=== PATIENT | male | born 1965 | race Caucasian/White ===

== ENCOUNTER 2022-10-01 09:18 | Outpatient (CLI) | payer BC, SELFPAY ==
--- NOTE | 2022-10-01 08:30 | DI.RAD_ITS ---
Exam(s) XR KNEE RT 4V AP,LAT,JERRELL,PAT EXAM: XR KNEE RT 4V AP,LAT,JERRELL,PAT CLINICAL HISTORY: evalR knee pain. TECHNIQUE: 2D digital imaging was performed of the right knee. Five views obtained. Merchant, AP, la teral and PA tunnel views were obtained. COMPARISON: No exams were available for comparison FINDINGS: BONES: No acute fracture is present. No bony destructive lesion is seen. JOINTS: The knee is normally aligned. There is a small joint effusion. There are round density seen within the joint which may represent loose bodies or synovial osteochondromatosis. There is marked n arrowing of the medial femoral tibial joint. Periarticular spurring is seen in both the lateral femo ral tibial and patellofemoral joints. SOFT TISSUE: Normal. IMPRESSION: Moderate to severe degenerative changes of the right knee. DATA REPOSITORY: RADIATION DOSE DELIVERED:
== END 2022-10-01 09:19 | disposition home or self-care (01) ==
LOC: DIORS 09:19
PROVIDERS: Visit Provider Student in an Organized Health Care Education/Training Program
DX: M25.561 Pain in right knee (principal); M25.461 Effusion, right knee; M17.11 Unilateral primary osteoarthritis, right knee
CPT/HCPCS: 73564

== ENCOUNTER 2023-06-25 10:40 | Outpatient (CLI) | payer BC, SELFPAY ==
--- NOTE | 2023-06-25 09:30 | DI.RAD_ITS ---
Exam(s) XR STANDING ALIGNMENT EXAM: XR STANDING ALIGNMENT CLINICAL HISTORY: OA RIGHT KNEE. TECHNIQUE: 2D digital imaging was performed. COMPARISON: No exams were available for comparison FINDINGS: 3 views There is significant degenerative change in the right knee with advanced narrowing of the medial join t space. There is relative preservation of height of the lateral joint space but there is significan t medial subluxation of the femoral condyles upon the tibial plateau, with approximately 1.5 cm media l subluxation. There also calcified loose bodies noted posteriorly in the intercondylar notch. The opposite-left knee appears relatively unremarkable. Both hips exhibit no degenerative changes but th e left hip joint is approximately 1.3 cm higher than the right hip joint. Sacroiliac joints appear u nremarkable. Left iliac crest is 1.5 cm higher than the right iliac crest. Right ankle unremarkable. There is a E degenerative subarticular cysts noted in the lateral aspect o f the talar dome in left ankle. IMPRESSION: Abnormal findings in the right knee as discussed above. Leg length discrepancy as described above. DATA REPOSITORY: RADIATION DOSE DELIVERED:
--- NOTE | 2023-06-25 09:30 | DI.RAD_ITS ---
Exam(s) XR KNEE RT 1V EXAM: XR KNEE RT 1V CLINICAL HISTORY: OA RIGHT KNEE. TECHNIQUE: 2D digital imaging was performed. COMPARISON: CR XR KNEE RT 4V AP,LAT,JERRELL,PAT from 10/01/2022 CR XR STANDING ALIGNMENT from 06/25/2023 FINDINGS: Single lateral view No fractures. There is a joint effusion noted in the suprapatellar bursa. There are degenerative ch anges evident. There are loose intra-articular bodies seen posteriorly in the posterior aspect of the intercondylar notch. IMPRESSION: Degenerative changes. Joint effusion. Posteriorly located loose intra-articular bodies. DATA REPOSITORY: RADIATION DOSE DELIVERED:
== END 2023-06-25 10:41 | disposition home or self-care (01) ==
LOC: DIORS 10:41
PROVIDERS: Visit Provider Student in an Organized Health Care Education/Training Program
DX: M17.11 Unilateral primary osteoarthritis, right knee (principal); M25.461 Effusion, right knee; M21.761 Unequal limb length (acquired), right tibia
CPT/HCPCS: 73560; 77073

== ENCOUNTER 2023-07-22 02:03 | Outpatient (CLI) | payer BC, SELFPAY ==
[2023-07-22 14:11] LABS: HCT 46.9 % (40.0-50.0); HGB 15.6 g/dL (13.5-17.5); MCH 30.8 pg (27.0-33.0); MCHC 33.3 % (32.0-36.0); MCV 93 fL (80-95); MPV 9.3 fL (8.0-11.0); Platelet Count 279 10^3/uL (130-400); RBC 5.07 10^6/uL (4.36-5.78); RDW 12.2 % (11.8-14.1); RDW-SD 41.6 fL; WBC 6.43 10^3/uL (4.4-10.8)
[2023-07-22 15:10] LABS: Anion Gap 8.5 mmol/L (3-11); BUN 19 mg/dL (7-18); CO2 28.5 mmol/L (21.0-32.0); Calcium 9.3 mg/dL (8.5-10.1); Chloride 101 mmol/L (98-107); Estimated GFR 87.78 (mL/min/1.73m2); Glucose 71 mg/dL (74-106); Potassium 3.9 mmol/L (3.5-5.1); Sodium 138 mmol/L (136-145)
== END 2023-07-22 02:04 | disposition home or self-care (01) ==
PROVIDERS: Visit Provider Student in an Organized Health Care Education/Training Program
DX: M25.561 Pain in right knee (principal); M17.11 Unilateral primary osteoarthritis, right knee; Z01.818 Encounter for other preprocedural examination; Z01.812 Encounter for preprocedural laboratory examination
CPT/HCPCS: 36415; 80048; 85027

== ENCOUNTER 2023-08-05 07:25 | Day surgery (SDC) | payer BC, SELFPAY ==
[2023-08-05] VITALS (9 sets, daily range): BP systolic 126–154; BP diastolic 80–108; PULSE 64–77; RESP 12–20; TEMP 36.4–36.7; O2SAT 92–98; BMI 38.2
--- NOTE | 2023-08-05 07:30 | DSE_ITS ---
Date of service: 08/05/23 Time of Service: 07:33 Discharge Plan Disposition Patient Disposition: Home Condition: Good Discharge Details Reason For Visit: Right knee DJD Attending Provider: Wander Garcia Primary Care Provider: None,None Home Meds and New Rx's Prescriptions: New acetaminophen 500 mg tablet 1,000 mg PO Q8H PRN Qty: 90 0RF Rx Instructions: Take two tablets up to every 8 hours as needed for pain aspirin 81 mg tablet,delayed release (DR/EC) 81 mg PO BID 30 Days Qty: 60 0RF celecoxib [Celebrex] 200 mg capsule 200 mg PO BID PRNQty: 60 0RF Rx Instructions: Take one tablet twice daily for pain and inflammation docusate sodium [Colace] 100 mg capsule 100 mg PO BID Qty: 30 0RF pantoprazole 40 mg tablet,delayed release (DR/EC) 40 mg PO DAILY 14 Days Qty: 14 0RF dexamethasone 4 mg tablet 4 mg PO DAILY Qty: 2 0RF Rx Instructions: Take one tablet once daily for two days oxycodone 5 mg tablet 5 mg PO Q4H PRNQty: 18 0RF Rx Instructions: Take one tablet up to every 4 hours as needed for severe postoperative pain gabapentin 300 mg capsule 300 mg PO QHS Qty: 14 0RF Rx Instructions: Take one tablet at bedtime Continued lisinopril 10 mg tablet 10 mg PO DAILY fluticasone propionate 50 mcg/actuation spray,suspension 2 spray intranasal DAILY Rx Instructions: administer into each nostril Discontinued meloxicam 15 mg tablet 15 mg PO DAILY Qty: 30 3RF Discharge Instructions Additional Instructions: Total Knee Discharge Instructions Activity: The most important activity is to walk and to work on gentle motion (both flexion and extension). You should try to take short walks a few times a day. It is important that when resting you work on keeping the knee straight. Avoid putting a pillow behind the knee as this will encourage flexion. Work on range of motion exercises as provided by Physical Therapy. - Start outpatient physical therapy within 2 weeks. - You should wear the DARRON hose on both legs for 2 weeks. You may remove these at night. You may also use any compression sock in place of the DARRON hose. - Utilize [employer] to review exercises, see videos on exercises and obtain basic information pertaining to your surgery and your recovery. Dressing: Remove the Tal wrap by 2 days after your surgery and put on the DARRON stocking given to you from the hospital. Keep the surgical dressing (underneath the TAL wrap) in place for at least one week. After the first week it may be removed and replaced with light gauze and tape or nothing. The wound and dressing may get wet after 3 days but avoid soaking the dressing or otherwise it will need to be changed. Many people prefer covering the dressing with cling wrap (saran wrap) to minimize it from getting soaked. If it gets wet, just pat dry. If it starts to peel off then it will need to be changed. Medications: - You should take Tylenol and anti-inflammatory Celebrex as your primary pain control medications. If the Celebrex is too expensive or not covered, please call the office for another alternative (Advil/Ibuprofen or Naproxen/Aleve) - You have been prescribed a stronger pain medication Oxycodone for breakthrough pain, take as needed as prescribed. - You have also been prescribed a stomach acid reduction agent Pantoprozole to help reduce stomach acid and reflux. - You have been prescribed Gabapentin to take at night for restlessness and nerve pain. - You will be taking Aspirin 81mg twice a day for DVT prevention unless instructed otherwise. - You have also been prescribed Decadron to take to control post-operative nausea and pain. You will start this tomorrow. - If you have constipation you should take Colace (which has been prescribed) or Miralax (which is available [id number]). It takes most people 3-4 days to have a bowel movement. Follow-up: 2 weeks If you have any acute concerns or questions, please do not hesitate to contact the office at [phone]. You may contact Dr. Garcia with any questions after hours through the hospital at [phone] or on his cell phone at [phone]. Stand Alone Forms: Anesthesia Discharge InstIram, David.Nerve Block Instructions, Shannon Ferguson ([facility]) Referrals: Wander Garcia MD [ [facility] STAFF PHYSICIAN] - 08/19/23 10:45 am Equipment/Supplies: Walker Activity:: Elevate Remove Dressings/Wound Care:: Do Not Remove Shower/Bathe:: 72 hours and Cover Diet:: As Tolerated Discharge Orders Discharge Orders: Discharge Order (Routine); Ordered 08/05/23 Ordered By: Jennifer Peralta Discharge Data Discharge Date/Time-TO BE ENTERED AT DEPARTURE: 08/05/23 13:55 DS: Summary Time Spent with Patient providing and/or coordinating discharge services: Less than 30 minutes Status at Discharge Functional status at discharge: uses cane/walker Overall status at discharge: patient is progressing back to baseline Mental Status: mental status grossly normal Speech and Movement: speech and movement normal Mood: congruent mood Affect: normal affect Exam Psych Mental Status: mental status grossly normal Speech and Movement: speech and movement normal Mood: congruent mood Affect: normal affect DS: Data Vitals/I&O Vitals and I&O: Intake & Output 08/04/23 08/04/23 08/05/23 11:59 23:59 11:59 Weight 273 lb 15.989 oz PFSH All Active Problems HTN (hypertension) (Chronic) Localized osteoarthritis of right knee (Chronic) Surgical History Fracture of phalanx of right index finger ~2016 MCP joint Repair of umbilical hernia Social History Smoking/Tobacco Use Status: Never Smoking risk assessment performed?: Yes Alcohol Intake: current Alcohol Intake frequency: a few times a week Drug use: Never Substance use type: does not use Housing: house Do you feel safe at home: Yes Do you feel safe in your relationship?: Yes Time Spent with Patient Time Spent with Patient: <45 minutes Time was spent: obtaining and/or reviewing separately otained hiistory, indepentently interpreting results, counseling the patient and care coordination
[2023-08-05] MEDS: Lactated Ringers 1,000 ML 80 ML IV (07:51)
[2023-08-05] MEDS: Gabapentin 300 MG CAP PO (07:52)
[2023-08-05] MEDS: Celecoxib 200 MG CAP 400 MG PO (07:52)
[2023-08-05] MEDS: Acetaminophen 500 MG TAB 1000 MG PO (07:52)
--- NOTE | 2023-08-05 08:04 | W.ANESPRE ---
General Info Date of Service Date Performed: 08/05/23 Height: 5 ft 11 in Weight: 124.284 kg Body Mass Index (BMI): 38.2 Surgical Procedure: Operation Date: 08/05/23 09:40 Proposed Procedure Side Surgeon p Knee Total Arthroplasty w/OrthAlign Right Wander Garcia MD Meds Allergies and Home Medications Allergies Allergy/AdvReac Type Severity Reaction Status Date / Time No Known Drug Allergies Allergy Unverified 08/04/23 15:36 Home Medication Medication Instructions Recorded fluticasone propionate 50 2 spray intranasal DAILY 08/25/22 mcg/actuation nasal spray,suspension lisinopril 10 mg tablet 10 mg PO DAILY 07/22/23 acetaminophen 500 mg tablet 1,000 mg (2 x 500 mg) PO Q8H PRN 08/05/23 pain #90 tabs aspirin 81 mg tablet,delayed 81 mg PO BID 30 days #60 tabs 08/05/23 release celecoxib 200 mg capsule (Celebrex) 200 mg PO BID PRN #60 caps 08/05/23 dexamethasone 4 mg tablet 4 mg PO DAILY #2 tabs 08/05/23 docusate sodium 100 mg capsule 100 mg PO BID #30 caps 08/05/23 (Colace) oxycodone 5 mg tablet 5 mg PO Q4H PRN #18 tabs 08/05/23 pantoprazole 40 mg tablet,delayed 40 mg PO DAILY 14 days #14 tabs 08/05/23 release Current Visit Medications: Current Medications Generic Name Dose Route Start Last Admin Trade Name Freq PRN Reason Stop Dose Admin Acetaminophen 1,000 mg 08/05/23 06:00 08/05/23 07:52 Acetaminophen 500 Mg Tab PO 09/04/23 05:59 1,000 mg PREOP ZEE Administration Celecoxib 400 mg 08/05/23 06:00 08/05/23 07:52 Celecoxib 200 Mg Cap PO 09/04/23 05:59 400 mg PREOP ZEE Administration Gabapentin 300 mg 08/05/23 06:00 08/05/23 07:52 Gabapentin 300 Mg Cap PO 09/04/23 05:59 300 mg PREOP ZEE Administration Hydromorphone HCl 0.5 mg 08/05/23 07:28 Hydromorphone 2 Mg/Ml Syr IVP 09/04/23 07:27 Q2H PRN PRN Tranexamic Acid 1,000 mg/ 60 mls @ 360 mls/hr 08/05/23 06:00 Sodium Chloride IVPB 09/04/23 05:59 PREOP ZEE Ringer's Solution 1,000 mls @ 80 mls/hr 08/05/23 06:00 08/05/23 07:51 IV 08/08/23 23:59 80 mls/hr INFUSION ZEE Administration Cefazolin Sodium 3,000 mg/ 100 mls @ 200 mls/hr 08/05/23 06:00 Sodium Chloride IVPB 08/05/23 16:00 PREOP ZEE Cefazolin Sodium/Dextrose 1 gm in 50 mls @ 100 mls/hr 08/05/23 08:00 Ancef Duplex IVPB 08/06/23 00:29 Q8H ZEE IV Miscellaneous Supplies 1 each 08/05/23 06:00 Iv Access IV 08/08/23 23:59 DIRECTED ZEE Ondansetron HCl 4 mg 08/05/23 07:28 Ondansetron 4 Mg/2 Ml Vial IVP 09/04/23 07:27 Q6H PRN PRN Nausea Oxycodone HCl 0 mg 08/05/23 07:28 Oxycodone 5 Mg Tab PO 09/04/23 07:27 Q3H PRN PRN Pain Sodium Chloride 0 ml 08/05/23 06:00 Normal Saline Flush 10 Ml Syr IV 08/08/23 23:59 PRN PRN Sodium Chloride 0 ml 08/05/23 06:00 Normal Saline 10 Ml Vial IJ 08/08/23 23:59 DIRECTED PRN Sterile Water 0 ml 08/05/23 06:00 Water,Injection,Sterile 10 Ml Vial IJ 08/08/23 23:59 DIRECTED PRN PFSH Active Problems Active Problems: Problem Status Onset Code HTN (hypertension) I10 Localized osteoarthritis of right knee M17.11 Surgical History Surgical History Fracture of phalanx of right index finger ~2017 MCP joint Repair of umbilical hernia Tobacco Smoking/Tobacco Use Status: Never Alcohol Alcohol Intake: current Alcohol intake frequency: a few times a week Substance Use Substance use: Never Substance use type: does not use Vital Signs and Lab Results Lab Results Blood Type / Crossmatch: No Data to Display Complete Blood Count: White Blood Count 6.43 10^3/uL (4.4-10.8) 07/22/23 14:05 Red Blood Count 5.07 10^6/uL (4.36-5.78) 07/22/23 14:05 Hemoglobin 15.6 g/dL (13.5-17.5) 07/22/23 14:05 Hematocrit 46.9 % (40.0-50.0) 07/22/23 14:05 Platelet Count 279 10^3/uL (130-400) 07/22/23 14:05 Complete Metabolic Panel: Sodium 138 mmol/L (136-145) 07/22/23 14:05 Potassium 3.9 mmol/L (3.5-5.1) 07/22/23 14:05 Chloride 101 mmol/L (98-107) 07/22/23 14:05 Carbon Dioxide 28.5 mmol/L (21.0-32.0) 07/22/23 14:05 BUN 19 mg/dL (7-18) H 07/22/23 14:05 Creatinine 1.0 mg/dL (0.70-1.30) 07/22/23 14:05 Est GFR (CKD-EPI 2020) 87.78 (mL/min/1.73m2) 07/22/23 14:05 Calcium 9.3 mg/dL (8.5-10.1) 07/22/23 14:05 Glucose 71 mg/dL (74-106) L 07/22/23 14:05 Liver Function Panel: No Data to Display Coagulation Panel: No Data to Display Cardiac Panel: No Data to Display Arterial Blood Gas: No Data to Display Venous Blood Gas: No Data to Display Pancreas Panel: No Data to Display Thyroid Panel: No Data to Display Infectious Disease: No Data to Display Blood Cultures: No Data to Display Toxicology Panel: No Data to Display Anesthesia Assessment and Plan Anesthesia History Personal History: No History of Anesthesia Complications Family History: No Family History of Anesthesia Complications Exercise Tolerance Exercise Tolerance: Metabolic Equivalents>4 Pertinent Negatives Pertinent Negatives: No Symptoms of GERD Cardiac & Pulmonary Exam Cardiac Exam: Normal S1/S2 Heart Sounds Pulmonary Exam: Clear Bilateral Breath Sounds Implantable Cardiac Device Does patient have a Pacemaker or an ICD?: No Airway Exam Known Difficult Airway: No Mallampati Class: 2 Mouth Opening: Normal (> 3cm) Thyromental Distance: Greater than 3 cm Facial Hair: Full Brown Neck Range of Motion: Full ROM Neck Circumference: Thick Teeth Condition: Normal Dentition ASA Classification ASA Score: ASA 2 Emergency Case?: No NPO Status NPO Status: NPO Clears >2 hours, Solids >8 hours Anesthesia Plan Resuscitation Status: Full Code Anesthesia Technique: Spinal Anesthesia Airway Planned: Natural Airway Monitors Used: Standard Monitors
--- NOTE | 2023-08-05 08:55 | W.ANESNERVE ---
Nerve Block Single Injection Procedure Date and Time Date Performed: 08/05/23 Procedure Start: 08:43 Location Where Procedure Performed Procedure Location: Day Surgery Unit Reason Performed: Postoperative Analgesia Requesting Provider: Wander Garcia Timeout Performed Timeout Performed: Yes Monitoring Used ECG, Blood Pressure, SpO2, ETCO2 and See EMR for corresponding vital signs Sterility Sterility: Hand Hygiene, Surgical Cap, Surgical Mask, Sterile Gloves, Eye Protection and Chlorhexidine Sedation Given During Procedure Sedation Given (Indicate Dose Given): Versed IV Dose:: 3mg IVP Patient Mental Status Patient Mental Status: Sedate with meaningful communication Nerve Block 1st Nerve Block: Laterality: Right Block Type: Adductor Canal Ultrasound Image Saved?: Yes Needle / Catheter Used: 100mm SonoPlex II Local Anesthetic Bolus (Indicate Dose Given): Lidocaine used for local infiltration of skin, Injected in 3-5ml increments after negative blood aspiration and Ropivacaine 0.5% Dose:: 0.5%/25cc (125mg) Additives (Indicate Dose Given): Epinephrine to make 1:200,000 (5mcg/ml) Dose:: 125mcg / 5mcg/cc (1:200,000) Ultrasound: Sterile probe cover and gel used Nerve Stimulator: Not Used Paresthesia: None Procedure Tolerated: No Complications and Patient tolerated well Procedure Outcome: Successful Performed By: Silas Richardson
[2023-08-05] MEDS: ceFAZolin 3,000 MG in Normal Saline 100 ML 200 MG IVPB (09:15)
[2023-08-05] MEDS: fentaNYL 100 MCG/2 ML VIAL IVP ×2 (11:31→11:39)
[2023-08-05] MEDS: oxyCODONE 5 MG TAB PO (12:27)
--- NOTE | 2023-08-05 13:07 | PT.INIE ---
PT Notes Visit Reasons: Right knee DJD Physical Therapy Day Surgery Initial Evaluation Date: 08/05/2023 Referring Doctor: KATIA Cullen and PT Orders: PT CONSULT: S/P Ortho Surgery Precautions: WBAT on the right LE with AD Patient Profile/Admitting Diagnosis: Silas is a 58-year-old male with degenerative joint disease of the right knee and status post right total knee arthroplasty on postoperative day 0. PMHX: Surgical History (Updated 07/22/23 @ 13:27 by Jennifer Peralta) Fracture of phalanx of right index finger ~2017 MCP joint Repair of umbilical hernia Social History/Home Situation: Lives with in a private home with 3 steps to enter with a rail on the left side. Independent with all aspects of ADLs prior to surgery. 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 Equipment Owned/DME: [employer] Subjective: Reports 3/10 pain on the right knee at rest and with weight bearing. Denies headache, chest pain, and lightheadedness throughout session. Objective: General Observation: VANESSA wraps to right knee. Cryocuff to right knee. TEDS to the left leg. present in room throughout session. Mental Status: A & O x 4 Pain: As above ROM: Right Lower Extremity: Hip flexion WFL. Hip abduction WFL. Knee flexion 0 to 100 degrees. Ankle dorsiflexion WFL. Ankle plantarflexion WFL. Left Lower Extremity: Hip flexion WFL. Hip abduction WFL. Knee flexion WFL. Ankle dorsiflexion WFL. Ankle plantarflexion WFL. Strength: Right Lower Extremity: Hip flexors 4/5. Hip abductors 4/5. Knee flexors 3-/5. Knee extensors 4/5. Ankle dorsiflexors 5/5. Ankle plantarflexors 5/5. Left Lower Extremity:Hip flexors 5/5. Hip abductors 5/5. Knee flexors 5/5. Knee extensors 5/5. Ankle dorsiflexors 5/5. Ankle plantarflexors 5/5. Sensation: Intact as to pain and light pressure on BLE Bed Mobility/Transfers: Minimal cueing provided for use of B hands as needed for support, movement sequence, AD management, and and posture to reduce fall risk and minimize pain report Supine to sit standby assist Sit to stand standby assist with FWW Stand to sit standby assist with FWW Bed to chair standby assist with FWW Gait: Facilitated safe and correct performance of level surface ambulation covering a distance of 150 feet using front-wheeled walker with standby assist with step to gait pattern and minimal verbal cueing for AD management, limb advancement, posture, and overall safety. No LOB. No SOB. Stairs: Guided patient with safe negotiation of 3 x 4 inch steps and 2 x 6 inch steps while holding onto bilateral rails with step to gait pattern with minimal verbal cueing provided for increased knee flexion on the right during each ascent. Contact guard assist provided. Balance: Static Sitting: Normal Dynamic Sitting: Normal Static Standing: Fair Dynamic Standing: Fair Special Tests: Mobility Limitations Standardized Measure [facility] AM-PAC 6 clicks Basic Mobility Inpatient Short Form: Raw Score: 23 CMS Score: 11 percent deficit Informed Consent/Education: Patient instructed in purpose of PT consult. Packet containing TKA exercise protocol has been given to patient. Education and training on initial set of exercises that can be done at home have been completed with patient. Trained patient with correct performance of exercises below to maximize motor control, joint flexibility, soft tissue extensibility of the R knee musculature: Access Code: [email or web address] URL: [email or web address] Date: 08/05/2023 Prepared by: Monika Archer Exercises - Supine Quad Set - 1 x daily - 7 x weekly - 1 sets - 10 reps - 5 hold - Supine Heel Slide - 1 x daily - 7 x weekly - 1 sets - 10 reps - 5 hold - Supine Ankle Pumps - 1 x daily - 7 x weekly - 1 sets - 10 reps - 5 hold - Small Range Straight Leg Raise - 1 x daily - 7 x weekly - 1 sets - 10 reps - 5 hold - Seated March - 1 x daily - 7 x weekly - 1 sets - 10 reps - 5 hold ASSESSMENT: Patient requires the use of a front wheeled walker for all mobility ADL performance to maximize independence and reduce fall risk. Patient presents with clinical signs and symptoms consistent with current/admitting diagnoses that have resulted to mobility limitations, gait instability, generalized weakness, and impairment of motor control as demonstrated by the following impairment level findings: 1. Decreased strength to R knee major muscle groups 2. Impaired standing balance 3. Limitation of joint range of motion in R knee flexion Impairments are contributing to the following functional limitations: 1. Inability to safely ambulate without assistive device 2. Increase completion time for mobility ADL performance 3. Increased fall risk Patient is assessed as a 68950 moderate complexity based on the following: History: 58-year-old female with impairment level findings, functional limitations, and past medical history as indicated above Examination: Demonstrable impairment in strength, balance, and mobility level with underlying impairments and functional limitations as documented above Presentation: Evolving Decision Makin moderate complexity Goals: N/A. PT evaluation and 1-2 treatment sessions only for functional mobility training using recommended AD and for HEP instruction. Plan of Care/Treatment Plan: N/A. PT evaluation and 1-2 treatment session only for functional mobility training using recommended AD and for HEP instruction. DISCHARGE RECOMMENDATIONS: Home when medically cleared by orthopedic surgeon. Recommend outpatient PT services in order to optimize functional mobility outcomes and facilitate return to independent community ambulation without an assistive device. TREATMENT CODE/TIME: 9716 2 x 20 minutes for 1 unit, 9753 0 x 10 minutes for 1 unit beginning at 13:07 PM. Thank you for the opportunity to participate in the care of this patient. Please sign an return this page within 30 days if you agree with the above POC. Thank you! Physician Signature Date [facility]
--- NOTE | 2023-08-05 13:32 | W.ANESPOSTOP ---
Postoperative Evaluation Date, Time and Location Date Performed: 08/05/23 Time Performed: 13:38 Patient Location: Day Surgery Unit Vital Signs Most Recent Imported Vital Signs: Most Recent Vital Signs Temp Pulse Resp BP Pulse Ox 36.4 C L 72 17 126/86 96 08/05/23 12:45 08/05/23 12:45 08/05/23 12:45 08/05/23 12:45 08/05/23 12:45 Pain Score Most Recent Pain Score: Most Recent Pain Score Pain Level [Right Knee] 0 08/05/23 08:12 Pain Level 3 08/05/23 12:45 Assessment Mental Status: Awake (Alert & Oriented to Patient Baseline) Airway and Respiratory Function: Patent airway with normal (patient baseline) respiratory exam Cardiovascular Function: Hemodynamically Stable Hydration Status: Adequately Hydrated Nausea & Vomiting: No Nausea or Vomiting Pain: Pain is tolerable per patient Peripheral Nerve Block: Regional nerve block not resolved at time of post operative discharge
--- NOTE | 2023-08-05 16:00 | ROE_ITS ---
Date of service: 08/05/23 Time of Service: 09:30 Operative Note Operative Note DATE OF PROCEDURE: 08/05/23 PRE-OP DIAGNOSIS: Right Knee Osteoarthritis with Tibia Varus POST-OP DIAGNOSIS: same PROCEDURE: Right Total Knee Replacement with Intraoperative Navigation SURGEON: Wander Garcia SLAT PICKLER: Jennifer Peralta ANESTHESIA TYPE: Spinal Refer to Anesthesia Record ESTIMATED BLOOD LOSS: 100 PATHOLOGY: none sent TOURNIQUET TIME: 0 COMPLICATIONS: None Patient was transported to: PACU Patient's condition: stable Implants: 1. Depuy Attune Cementless Cruciate Retaining Femoral Component, Size 9 2. Depuy Attune Cementless Fixed Bearing Tibial Component, Size 8 3. Depuy Attune 9x8 CR/FB Poly 4. Depuy Attune Patellar Component, Size 38 Indications: I have seen Silas in clinic for symptoms of RIGHT knee arthritis, confirmed with radiographic findings. Silas has exhausted nonoperative methods and was having significant limitations in daily function and desired better function and less pain. I discussed the technical details of a knee replacement. I explained the risks of the procedure to include, but not limited to, bleeding, infection, pain, stiffness, fracture, damage to nerves and vessels, damage to muscles and tendons, loosening, need for repeat procedure, blood clot and cardiopulmonary demise. Despite these risks, Silas elected to proceed. Findings: There was significant signs of arthritis throughout the knee with significant deformity of the posteromedial tibia. Procedure Description: Silas was greeted in the preoperative holding area where the correct side was identified and marked. The consent was reviewed with the patient and signed. The history and physical was updated. All questions were answered. Preoperativ e mediacations were administered: Acetaminophen 1000mg, Celebrex 400mg, and Gabapentin 300mg. An adductor canal block was then administered by the anesthesia team in the PACU. Silas was taken back to the operating room. A spinal anesthestic was then administered. The patient was placed into the supine position on the operating room table. A nonsterile tourniquet was placed high onto the leg. Posts were placed for positioning during the procedure. All bony prominences were well padded. Prophylactic antibiotics in the form of Cefazolin were administered. 1g of Tranxemic Acid was given intravenously within 30 minutes of incision. The right leg was then prepped with Chloraprep and draped in a standard fashion with impervious stockinette. A second prep with Chloraprep was performed prior to application of Iodine impregnated skin protection. A timeout to confirm correct identity, side and site, procedure, allergies, anesthesia, and medical concerns was performed. With the knee in some flexion, a midline incision was made overlying the knee. Full thickness skin flaps were raised once the extensor mechanism was encountered. These were raised medially and laterally. Any bleeding was controlled with electrocautery. Once the extensor mechanism was fully exposed, a medial parapatellar arthrotomy was performed in a flexed position. All bleeding from the arthrotomy and the geniculate arteries was coagulated. A medial subperiosteal peel was performed with electrocautery to the midcoronal plane. Due to the significant varus deformity the entire medial tibial plateau was exposed. The fat pad was removed while keeping the patellar tendon protected. The anterior distal femur synovium was removed for later visualization. The ACL and PCL were resected and the ante rior horn of the lateral meniscus was transected. The knee was then flexed with the patella everted. Large osteophytes from the tibia were removed. Large osteophytes from the femur were removed. A single starting pin was then placed 1cm anterior to the PCL insertion and the notch in the direction of the femoral head. The OrthoAlign device was applied over the pin. It was oriented to be in line with the epicondylar axis and the trochlear groove. It was then pinned into place. The navigation computer was then turned on and calibrated. The distal femur cut was set at 1 degrees varus and 3.5 degrees flexion. The distal femur cutting guide then was positioned for a 9mm cut. The distal femur was cut with an oscillating saw while protecting the soft tissues. The tibia was then addressed. The OrthoAlign device was placed over the tibial tubercle and medial tibia and secured into position. Once again, OrthoAlign was calibrated and then set for a 2 degree varus cut and 6 degrees of posterior slope. With this locked into position, the cut thickness stylus was used to assess cut thickness. The medial side, most involved side, was set for a 2mm cut. This was then held in position and pinned into place with 2 additional pins and a cross pin for stability. The medial and lateral collateral ligaments were protected and the cut was performed. With this completed, it was assessed and noted to be of appropriate dimensions. The guide and OrthoAlign was removed. A spacer block was inserted and the knee was brought into extension to ensure enough space was present. . The Orthoalign gap balancing device was then placed in extension. This was used to ensure that the ligaments were properly balanced with up to 2 to 3 mm laxity laterally compared medially. The extension gap was measured as 22mm. The knee was then brought into 90 degrees of flexion and the ligament panama hat hydraulic press operator was once again placed. Under the same amount of force the flexion gap was measured. The Attune specific jig was placed and the flexion gap was made to match the extension gap. The femur was then sized as a size 9. The 4-in-1 cutting guide was the placed. An she wing was used to confirm appropriate position of the anterior cut to avoid notching. This cutting guide was ensured to be flush on the cut surface and then pinned into place with headed pins. While protecting the soft tissues, quad tendon, and collateral ligaments, the anterior and posterior cuts were performed with a saw. The central two pins were removed and the posterior and anterior chamfers were cut next. The notch-cutting guide was placed. This was pinned to lateralize the femoral component as much as possible while keeping it flush on the cut surface. This was then pinned into position. A saw was used to make the notch cut. A rasp smoothed the cut surfaces. The medial and lateral menisci were removed. A trial femoral component was then inserted, impacted down to the cut surfaces, and the lug holes were drilled. A provisional trial tibial component was placed and the knee was brought through range of motion. There was noted to be excellent extension and flexion. There was no significant instability. The patella was tracking without thumbs. A size 8mm polyethylene component provided the best range of motion and stability with less than 2mm gapping with medial and lateral stress and full extension without significant hyperextension. The tibial cut surface was fully exposed. The tibia was then sized as a 8. The tibia had been previously marked during trialing to correspond to the center of the tibial component to help with rotation. The trial was aligned to this ricky, approximately rotated to the medial 1/3rd of the tibial tubercle. The trial was pinned into place. The tibia was prepared with a reamer and a keel punch and lug holes. The knee was then brought into extension and the patella was measured as 29mm. Using the patellar clamp and cut guide, this was resected to a flat surface with at least 13mm of thickness remaining. The size 38 patella fit the best. This was oriented and then clamped into position. The lugs were drilled. The trial components were removed. The final components were opened on the back table. The periosteal and capsular tissues, especially posteriorly, around the knee were then systematically injected with a periarticular cocktail consisting of 246mg of Ropivacaine, 0.5mg of Epinephrine, 0.08mg of Clonidine, and 30mg of Ketorolac, diluted to 100cc. On the back table, with the implants opened, the cement was mixed. One batch of high viscosity cement was prepared with vacuum assistance. After the cement was ready a small amount was placed on the cut surface of the patella and the patellar button was clamped into position and held. While the cement was hardening, the cementless knee components were placed. Starting with the tibial component, the tibia was subluxed anteriorly and the lug holes of the component were lined up. The tibia was then impacted with an impactor and mallet until the tibial component was in contact with the tibia. Then, the femoral component was inserted. The lug holes were aligned and the component was impacted into position. The final polyethylene component was inserted. The knee was irrigated with Irrisept chlorhexadine solution. This was allowed to sit in the knee for 3 minutes and then it was thoroughly irrigated out with saline. After the cement had finally cured, approximately 15min, the clamp was removed from the patella and the knee was taken through range of motion. The patella was tracking with a no-thumbs technique. The capsule was then reapproximated with a No. 1 Vicryl at multiple locations. The capsule was finally closed with a No. 2 Stratafix, barbed suture. Deep tissues were then reapproximated with 0 Vicryl and 2-0 Vicryl. The skin was closed with a running 3-0 Monocryl in a subcuticular fashion. This was reinforced with skin glue. A Mepilex silver dressing was applied along with a [id number] VANESSA wrap. A CryoCuff was applied. Silas was transferred to the hospital bed without difficulty an suffering no apparent complication. Silas has a good prognosis. Physical therapy will start today and without restrictions, weight-bearing as tolerated. Aspirin 81mg BID will be used for DVT prophylaxis.
== END 2023-08-05 13:55 | disposition home or self-care (01) ==
PROVIDERS: Visit Provider Student in an Organized Health Care Education/Training Program
PROC: (CPT 27447; principal; 2023-08-05 09:30)
DX: M17.11 Unilateral primary osteoarthritis, right knee (principal); I10 Essential (primary) hypertension; Z79.82 Long term (current) use of aspirin
CPT/HCPCS: 27447; 20985; 76942; 97162; 97530; C1776; J0171; J0690; J1100; J2001; J2250; J2371; J2405; J2704; J3010

== ENCOUNTER 2023-08-19 15:14 | Outpatient (CLI) | payer BC, SELFPAY ==
--- NOTE | 2023-08-19 10:45 | DI.RAD_ITS ---
Exam(s) XR STANDING ALIGNMENT EXAM: XR STANDING ALIGNMENT CLINICAL HISTORY: 1st post op s/p R TKA. TECHNIQUE: 2D digital imaging was performed. COMPARISON: CR XR STANDING ALIGNMENT from 06/25/2023 FINDINGS: There has been interval placement of a right knee prosthesis which appears satisfactory. Left knee reveals minimal degenerative change. There is mild joint space narrowing of the right hip. Left hip unremarkable. Ankles appear unremark able. Bone density normal. No osseous lesions. Sacroiliac joints appear unremarkable. IMPRESSION: As above. DATA REPOSITORY: RADIATION DOSE DELIVERED:
--- NOTE | 2023-08-19 10:45 | DI.RAD_ITS ---
Exam(s) XR KNEE RT 1V EXAM: XR KNEE RT 1V CLINICAL HISTORY: 1st post op s/p R TKA. TECHNIQUE: 2D digital imaging was performed. COMPARISON: CR XR KNEE RT 1V from 06/25/2023 FINDINGS: Single lateral view. Satisfactory position alignment of the components of the recently placed prosthesis. No fracture or loosening evident. There is soft tissue swelling in the anterior soft tissues IMPRESSION: As above. DATA REPOSITORY: RADIATION DOSE DELIVERED:
== END 2023-08-19 15:15 | disposition home or self-care (01) ==
LOC: DIORS 15:14
PROVIDERS: Visit Provider Physician Assistant
DX: Z96.651 Presence of right artificial knee joint (principal); Z47.1 Aftercare following joint replacement surgery
CPT/HCPCS: 73560; 77073

== ENCOUNTER 2023-09-01 08:43 | Outpatient (REF) | payer BC, SELFPAY ==
[2023-09-01 20:42] LABS: Hemoglobin A1C 5.5 % (<5.7)
[2023-09-01 20:45] LABS: ALT 34 U/L (16-63); AST 14 U/L (15-37); Albumin 3.6 g/dL (3.4-5.0); Alkaline Phosphatase 83 U/L (46-116); Anion Gap 9.4 mmol/L (3-11); BUN 20 mg/dL (7-18); Bilirubin, Total 0.4 mg/dL (0.2-1.0); CO2 27.6 mmol/L (21.0-32.0); Calcium 9.2 mg/dL (8.5-10.1); Calculated LDL 204 mg/dL (<100); Chloride 101 mmol/L (98-107); Cholesterol 274 mg/dL (<200); Estimated GFR 87.78 (mL/min/1.73m2); Glucose 112 mg/dL (74-106); HDL Cholesterol 55 mg/dL (40-60); Potassium 4.6 mmol/L (3.5-5.1); Sodium 138 mmol/L (136-145); Total Protein 7.4 g/dL (6.4-8.2); Triglyceride 76 mg/dL (<150)
== END 2023-09-01 08:44 | disposition home or self-care (01) ==
LOC: NCHCN 08:43
PROVIDERS: Visit Provider Physician Assistant
DX: I10 Essential (primary) hypertension (principal); R73.09 Other abnormal glucose
CPT/HCPCS: 80053; 80061; 83036

== ENCOUNTER 2023-11-04 14:46 | Outpatient (CLI) | payer BC, SELFPAY ==
--- NOTE | 2023-11-04 09:45 | DI.RAD_ITS ---
Exam(s) XR KNEE LT 4V AP,LAT,JERRELL,PAT EXAM: XR KNEE LT 4V AP,LAT,JERRELL,PAT CLINICAL HISTORY: LEFT KNEE PAIN. TECHNIQUE: 2D digital imaging was performed. Three views. COMPARISON: CR XR KNEE RT 1V from 08/19/2023 FINDINGS: BONES: No acute fracture is present. No bony destructive lesion is seen. JOINTS: The joint spaces are maintained. Mild spurring at the articular aspect of the patella. The knee is normally aligned. No joint effusion is seen. SOFT TISSUE: Normal. IMPRESSION: Mild degenerative changes of the patellofemoral joint. DATA REPOSITORY: RADIATION DOSE DELIVERED:
== END 2023-11-04 14:47 | disposition home or self-care (01) ==
LOC: DIORS 14:46
PROVIDERS: Visit Provider Student in an Organized Health Care Education/Training Program
DX: M25.562 Pain in left knee (principal)
CPT/HCPCS: 73564

== ENCOUNTER 2023-11-25 15:38 | Outpatient (REF) | payer BC, SELFPAY ==
[2023-11-25 19:41] LABS: ALT 36 U/L (16-63); AST 12 U/L (15-37); Albumin 3.8 g/dL (3.4-5.0); Alkaline Phosphatase 86 U/L (46-116); Bilirubin, Direct 0.1 mg/dL (0.0-0.2); Bilirubin, Total 0.3 mg/dL (0.2-1.0); Total Protein 7.2 g/dL (6.4-8.2)
[2023-11-25 19:55] LABS: Calculated LDL 131 mg/dL (<100); Cholesterol 200 mg/dL (<200); HDL Cholesterol 60 mg/dL (40-60); Triglyceride 49 mg/dL (<150)
== END 2023-11-25 15:39 | disposition home or self-care (01) ==
LOC: NCHCN 15:38
PROVIDERS: Visit Provider Physician Assistant
DX: E78.5 Hyperlipidemia, unspecified (principal)
CPT/HCPCS: 80061; 80076

== ENCOUNTER 2024-05-22 09:06 | Day surgery (SDC) | payer BC, SELFPAY ==
--- NOTE | 2024-05-21 12:32 | W.PM.DSUDISC ---
Date of service: 05/22/24 Time of Service: 11:02 Discharge Plan Disposition Patient Disposition: Home Condition: Good Discharge Details Reason For Visit: creening colonoscopy Attending Provider: Thomas Garner Primary Care Provider: Unknown,Unknown Home Meds and New Rx's Prescriptions: Continued aspirin 81 mg tablet,delayed release (DR/EC) 81 mg PO DAILY Patient Comments: pt. hasn't started lisinopril 10 mg tablet 10 mg PO DAILY Discontinued bisacodyl [Dulcolax (bisacodyl)] 5 mg tablet,delayed release (DR/EC) 5 mg PO ONCE Qty: 4 0RF Rx Instructions: Take per colonoscopy instructions provided by ordering providers office polyethylene glycol 3350 17 gram/dose powder 17 g PO ONCE Qty: 238 0RF Rx Instructions: Take per colonoscopy instructions provided by ordering providers office Discharge Instructions Additional Instructions: Silas, we were able to complete your colonoscopy today without any difficulty. Your prep was excellent, and I could see everything fine. I did not see any signs of tumors, polyps, or any other worrisome issues. You should consider another screening colonoscopy in 10 years. 1. If tolerated, consume a soft, low fiber diet for 1-2 days. 2[address] Do not drive, drink alcohol, operate machinery, make critical decisions, or do activities that require coordination or balance for 24 hours. 3. Because air was put into your colon during the procedure, expelling air from your rectum (passing gas or farting) is normal. 4. You may not have a bowel movement for 1-3 days because of the colonoscopy prep. This is normal. 5. Go directly to the emergency room if you notice any of the following: Develop chills (warm to touch), or if you have a thermometer and your temperature is above 101 Difficulty breathing or difficultly swallowing Persistent vomiting Severe abdominal pain, other than gas cramps Severe chest pain Black, tarry stools Any bleeding ? exceeding one tablespoon 6. Call your physician if the site where your intravenous was started becomes red, swollen, painful, and warm to touch. 7. Your physician has reviewed your pre-procedure medications. Please continue to take those medications as previously ordered. You will be given specific information/education regarding any changes to your medications before leaving. Stand Alone Forms: Anesthesia Discharge Shannon Torres (KERVIN) Activity:: Activity as Tolerated Diet:: As Tolerated Discharge Orders Discharge Orders: Discharge Order (Routine); Ordered 05/21/24 Ordered By: Thomas Garner DS: Diagnosis Discharge Diagnosis (1) Encounter for screening colonoscopy: Status: Acute Asessment and Plan: Negative screening colonoscopy; follow-up in 10 years
--- NOTE | 2024-05-21 12:33 | W.COLOREPORT ---
Date of service: 05/22/24 Time of Service: 11:02 Colonoscopy Report Date of procedure: 05/22/24 Pre-op diagnosis general: screening colonoscopy Post-op diagnosis procedure note: other (Negative screening colonoscopy) Procedure: colonoscopy Surgeon: Thomas Garner Anesthesia Type: General:No Airway Estimated blood loss (mL): 0 Pathology: none sent Complications: None Disposition: same day Indications: Silas is a 58 year old man who needs a screening colonoscopy Prep: Miralax/Dulcolax Procedure Start Time: 10:28 Procedure End Time: 10:40 Retraction Time: 10 Findings: Negative screening colonoscopy Procedure Description: After the induction of anesthesia, and with the patient in left lateral decubitus position, I began by performing an external anorectal exam.? Perineum and skin were normal, as was the anal verge.? There was no evidence of external hemorrhoids.? Next, I performed a digital rectal exam.? I did not appreciate any abnormal findings.? Next, I advanced a colonoscope into the rectal vault.? I performed retroflexion.? This was normal.? Using insufflation, I then advanced the colonoscope beyond the rectal folds and into the sigmoid colon before advancing towards the cecum.? The quality of the prep was excellent.? The scope was noted to be in the cecum by identification of the ileocecal valve and appendiceal orifice.? I then began withdrawing the colonoscope using repeated irrigation as necessary for full evaluation of the colonic mucosa. ?Once the scope was withdrawn to the level of the rectum, great care was taken to examine portions of the rectal folds.? I did not see any signs of tumors, polyps, or any other worrisome pathology. Finally, the scope was withdrawn and the patient was brought to the same-day surgery recovery unit as the anesthetic wore off. ?The findings and instructions were shared with the patient prior to discharge. [place] Bowel Prep [place] Bowel Prep Right Colon: 3 Left Colon: 3 Transverse Colon: 3 Total Score: 9
[2024-05-22 09:39] VITALS: BP 153/94; PULSE 62; RESP 16; TEMP 37; O2SAT 99
[2024-05-22] MEDS: Lactated Ringers 1,000 ML 80 ML IV (10:00)
--- NOTE | 2024-05-22 10:05 | W.ANESPRE ---
General Info Date of Service Date Performed: 05/22/24 Height: 5 ft 11 in Weight: 125 kg Body Mass Index (BMI): 38.4 Surgical Procedure: Operation Date: 05/22/24 10:35 Proposed Procedure Side Surgeon kiara Garner MD Meds Allergies and Home Medications Allergies Allergy/AdvReac Type Severity Reaction Status Date / Time No Known Allergies Allergy Verified 05/22/24 09:56 Home Medication ?Medication ?Instructions ?Recorded aspirin 81 mg tablet,delayed 81 mg PO DAILY 10/18/23 release lisinopril 10 mg tablet 10 mg PO DAILY 10/18/23 Current Visit Medications: Current Medications Generic Name Dose Route Start Last Admin Trade Name Freq PRN Reason Stop Dose Admin Ringer's Solution 1,000 mls @ 80 mls/hr 05/22/24 06:00 IV 06/18/24 23:59 INFUSION ZEE IV Miscellaneous Supplies 1 each 05/22/24 06:00 Iv Access IV 06/18/24 23:59 DIRECTED ZEE Ondansetron HCl 4 mg 05/22/24 06:00 Ondansetron 4 Mg/2 Ml Vial IVP 06/21/24 05:59 Q4H PRN PRN Nausea / Vomiting Sodium Chloride 0 ml 05/22/24 06:00 Normal Saline Flush 10 Ml Syr IV 06/18/24 23:59 PRN PRN Sodium Chloride 0 ml 05/22/24 06:00 Normal Saline 10 Ml Vial IJ 06/18/24 23:59 DIRECTED PRN Sterile Water 0 ml 05/22/24 06:00 Water,Injection,Sterile 10 Ml Vial IJ 06/18/24 23:59 DIRECTED PRN PFSH Active Problems Active Problems: Problem Status Onset Code Encounter for screening colonoscopy Acute Z12.11 Osteoarthritis of left knee Acute M17.12 History of total right knee replacement Acute 08/05/23 Z96.651 HTN (hypertension) Chronic I10 Surgical History Surgical History History of total knee replacement Fracture of phalanx of right index finger ~2017 MCP joint Repair of umbilical hernia Tobacco Smoking/Tobacco Use Status: Never Alcohol Alcohol Intake: current Alcohol intake frequency: 3 or more drinks per day Alcohol type: beer Substance Use Substance use: Never Substance use type: does not use Vital Signs and Lab Results Vital Signs Most Recent Vital Signs in EMR: Most Recent Vital Signs Temp Pulse Resp BP Pulse Ox 37 C 62 16 153/94 H 99 05/22/24 09:39 05/22/24 09:39 05/22/24 09:39 05/22/24 09:39 05/22/24 09:39 Lab Results Blood Type / Crossmatch: No Data to Display Complete Blood Count: No Data to Display Complete Metabolic Panel: No Data to Display Liver Function Panel: No Data to Display Coagulation Panel: No Data to Display Cardiac Panel: No Data to Display Arterial Blood Gas: No Data to Display Venous Blood Gas: No Data to Display Pancreas Panel: No Data to Display Thyroid Panel: No Data to Display Infectious Disease: No Data to Display Blood Cultures: No Data to Display Toxicology Panel: No Data to Display Anesthesia Assessment and Plan Anesthesia History Personal History: No History of Anesthesia Complications Family History: No Family History of Anesthesia Complications Exercise Tolerance Exercise Tolerance: Metabolic Equivalents>4 Pertinent Negatives Pertinent Negatives: No Symptoms of GERD, No Major Pulmonary Symptoms or Complaints and No History of CVA/TIA Cardiac & Pulmonary Exam Cardiac Exam: Normal S1/S2 Heart Sounds Pulmonary Exam: Clear Bilateral Breath Sounds Implantable Cardiac Device Does patient have a Pacemaker or an ICD?: No Airway Exam Known Difficult Airway: No Mallampati Class: 2 Mouth Opening: Normal (> 3cm) Thyromental Distance: Greater than 3 cm Facial Hair: Full Brown Neck Range of Motion: Full ROM Neck Circumference: Thick Teeth Condition: Normal Dentition ASA Classification ASA Score: ASA 2 Emergency Case?: No NPO Status NPO Status: NPO Clears >2 hours, Solids >8 hours Anesthesia Plan Resuscitation Status: Full Code Anesthesia Technique: General Anesthesia Airway Planned: Natural Airway Monitors Used: Standard Monitors
[2024-05-22 10:16] VITALS: BMI 38.4
[2024-05-22 10:56] VITALS: BP 154/98; PULSE 90; RESP 16; TEMP 36.7; O2SAT 95
--- NOTE | 2024-05-22 10:58 | W.ANESPOSTOP ---
Postoperative Evaluation Date, Time and Location Date Performed: 05/22/24 Time Performed: 10:58 Patient Location: Day Surgery Unit Vital Signs Most Recent Imported Vital Signs: Most Recent Vital Signs Temp Pulse Resp BP Pulse Ox 36.7 C 90 16 154/98 H 95 05/22/24 10:56 05/22/24 10:56 05/22/24 10:56 05/22/24 10:56 05/22/24 10:56 Pain Score Most Recent Pain Score: Most Recent Pain Score Pain Level 2 05/22/24 10:56 Assessment Mental Status: Awake (Alert & Oriented to Patient Baseline) Airway and Respiratory Function: Patent airway with normal (patient baseline) respiratory exam Cardiovascular Function: Hemodynamically Stable Hydration Status: Adequately Hydrated Nausea & Vomiting: No Nausea or Vomiting Pain: Pain is tolerable per patient Peripheral Nerve Block: Patient did not receive a nerve block
[2024-05-22 11:24] VITALS: BP 164/106; PULSE 61; RESP 16; TEMP 36.7; O2SAT 99
== END 2024-05-22 11:15 | disposition home or self-care (01) ==
LOC: SUR 09:07
PROVIDERS: Visit Provider Surgery
PROC: 0DJD8ZZ Inspection of Lower Intestinal Tract, Via Natural or Artificial Opening Endoscopic (ICD-10-PCS; CPT 45378; principal; 2024-05-22 10:30)
DX: Z12.11 Encounter for screening for malignant neoplasm of colon (principal)
CPT/HCPCS: 45378; J2704

== ENCOUNTER 2024-08-21 04:26 | Outpatient (CLI) | payer BC, SELFPAY ==
[2024-08-21 10:08] LABS: Creatine Kinase 75 U/L (39-308)
[2024-08-21 10:10] LABS: ALT 34 U/L (16-63); AST 14 U/L (15-37); Albumin 3.7 g/dL (3.4-5.0); Alkaline Phosphatase 72 U/L (46-116); Anion Gap 8.6 mmol/L (3-11); BUN 23 mg/dL (7-18); Bilirubin, Total 0.54 mg/dL (0.2-1.0); CO2 28.4 mmol/L (21.0-32.0); CREATININE 1.1 mg/dL (0.70-1.30); Calcium 9.5 mg/dL (8.5-10.1); Calculated LDL 152 mg/dL (<100); Chloride 105 mmol/L (98-107); Cholesterol 223 mg/dL (<200); Estimated GFR 77.81 (mL/min/1.73m2); Glucose 116 mg/dL (74-106); HDL Cholesterol 58 mg/dL (40-60); Hemoglobin A1C 5.6 % (<5.7); Potassium 4.6 mmol/L (3.5-5.1); Sodium 142 mmol/L (136-145); Total Protein 7.4 g/dL (6.4-8.2); Triglyceride 68 mg/dL (<150)
== END 2024-08-21 04:27 | disposition home or self-care (01) ==
LOC: LBO 04:26
PROVIDERS: PCP Nurse Practitioner Family; Referring Provider Nurse Practitioner Family; Visit Provider Nurse Practitioner Family
DX: E78.5 Hyperlipidemia, unspecified (principal); I10 Essential (primary) hypertension; Z83.3 Family history of diabetes mellitus
CPT/HCPCS: 36415; 80053; 80061; 82550; 83036

== ENCOUNTER 2024-09-07 15:35 | Outpatient (CLI) | payer BC, SELFPAY ==
--- NOTE | 2024-09-07 14:30 | DI.RAD_ITS ---
Exam(s) XR KNEE RT 2V AP,LAT EXAM: XR KNEE RT 2V AP,LAT CLINICAL HISTORY: F/U RIGHT TKA. TECHNIQUE: 2D digital imaging was performed. COMPARISON: CR XR STANDING ALIGNMENT from 08/19/2023 CR XR KNEE RT 1V from 08/19/2023 CR XR KNEE LT 4V AP,LAT,JERRELL,PAT from 11/04/2023 FINDINGS: Two views Stable position alignment of the components of the right knee prosthesis. No evidence of fracture. No loosening of the femoral component noted. On the AP view there is subtle lucency subjacent to bot h sides of the tibial component, not evident on the prior images of 08/19/2023 and therefore possibly significant. IMPRESSION: Subtle linear lucency subjacent to the tibial plateau component of the prosthesis which was not evide nt on prior images of 08/19/2023, 1 year ago. May be relevant. There is no lucency around the tibia l component stem. DATA REPOSITORY: RADIATION DOSE DELIVERED:
== END 2024-09-07 15:36 | disposition home or self-care (01) ==
LOC: DIORS 15:35
PROVIDERS: PCP Nurse Practitioner Family; Visit Provider Student in an Organized Health Care Education/Training Program
DX: Z96.651 Presence of right artificial knee joint (principal); Z47.1 Aftercare following joint replacement surgery
CPT/HCPCS: 73560

== ENCOUNTER 2024-09-20 15:15 | Outpatient (CLI) | payer BC, SELFPAY ==
--- NOTE | 2024-09-20 15:21 | DI.RAD_ITS ---
Exam(s) XR FOOT LT COMPLETE EXAM: XR FOOT LT COMPLETE CLINICAL HISTORY: worsening left foot pain M79.672. TECHNIQUE: 2D digital imaging was performed. COMPARISON: No exams were available for comparison FINDINGS: 3 views No evidence of acute fracture or diastasis of the Lisfranc joint. There is mild pes planus. Great toe metatarsophalangeal joint appears unremarkable as do the other MTP joints. Tarsometatarsal joints appear unremarkable. Small inferior calcaneal spur is noted as is a small enthesophyte on th e posterior calcaneus Achilles insertion site. Small os trigonum noted. Prominent posterior talar p rocess noted. IMPRESSION: As above. DATA REPOSITORY: RADIATION DOSE DELIVERED:
== END 2024-09-20 15:35 ==
LOC: DI 15:15
PROVIDERS: PCP Nurse Practitioner Family; Visit Provider Nurse Practitioner Family
DX: M79.672 Pain in left foot (principal)
CPT/HCPCS: 73630